=== PATIENT | female | born 1955 | race American Indian/Alaskan Native ===

== ENCOUNTER 2016-12-05 07:13 | Day surgery (SDC) | payer MEDICAID ==
[2016-12-05] MEDS: NACL 0.9% 1000 ML 1,000 ML IV SCH ×2 (08:02→08:09)
[2016-12-05] MEDS ORDERED: DIPRIVAN 10 MG/ML IV ONE ×2 (08:04→08:05)
[2016-12-05] MEDS ORDERED: XYLOCAINE MPF 2% ONE (08:10)
--- NOTE | 2016-12-05 08:22 | Anesthesia Consultation ---
Anesthesia Consult and Med Hx Date of service: 12/05/16 - Airway Anesthetic Teeth Evaluation: Poor ROM Head & Neck: Adequate Mental/Hyoid Distance: Adequate Mallampati Class: Class II Intubation Access Assessment: Probably Good - Pulmonary Exam CTA: Yes - Cardiac Exam Cardiac Exam: RRR - Pre-Operative Health Status ASA Pre-Surgery Classification: ASA3 Proposed Anesthetic Plan: MAC - Pulmonary Hx Smoking: Yes Hx Respiratory Symptoms: Yes (chronic bronchitis) Hx Pneumonia: Yes - Cardiovascular System Hx Hypertension: Yes - Gastrointestinal Hx Gastroesophageal Reflux Disease: Yes - Endocrine Hx Liver Disease: Yes (HEPATITIS C) Hx Non-Insulin Dependent Diabetes: Yes - Hematic Hx Anemia: Yes - Other Systems Hx Alcohol Use: Yes (quit 01/2014) Hx Substance Use: Yes (quit smoking marijuana and using cocaine 01/2014) Hx Obesity: Yes - Additional Comments Anesthesia Medical History Comments: delayed emergence
--- NOTE | 2016-12-05 08:23 | Anesthesia Day of Surgery ---
Anesthesia Day of Surgery - Day of Surgery Patient Examined: Yes Patient H&P Reviewed: Yes Patient is NPO: Yes
--- NOTE | 2016-12-05 08:50 | Short Stay Summary ---
Short Stay Documentation - Allergies and Medications Current Medications: Allergies morphine Allergy (Verified 12/04/16 14:59) Unknown Per patient "I was burning inside my arm." onion Allergy (Verified 12/04/16 14:59) Itching per patient she experiences generalized itching and redness Penicillins Allergy (Verified 12/03/16 15:35) Unknown PER PATIENT, "I CAN TAKE PCN BY MOUTH BUT NOT BY IV!" tramadol Allergy (Verified 12/04/16 14:59) Vomiting Home Medications Medication Instructions Recorded Confirmed Last Taken Type Bisoprolol Fumarate [Zebeta] 40 mg PO QDAY 12/03/16 12/05/16 12/03/16 History Naproxen Sodium [Aleve TAB] 220 mg PO Q8H PRN 12/03/16 12/05/16 12/03/16 History Pregabalin [Lyrica] 100 mg PO BID 12/03/16 12/05/16 12/03/16 History Ranitidine HCl [Zantac 150 MG TAB] 150 mg PO BID 12/03/16 12/05/16 12/03/16 History metFORMIN [Glucophage] 500 mg PO BID 12/03/16 12/05/16 12/03/16 History Active Medications Sodium Chloride (Nacl 0.9% 1000 Ml) 1,000 mls @ 50 mls/hr IV DIRECT TREVOR Last Admin: 12/05/16 08:09 Dose: 50 mls/hr - Brief post op/procedure progress note Date of procedure: 12/05/16 Pre-op diagnosis: 1. Colon cancer screening 2. LGI bleed 3. H/O Colon polyps Post-op diagnosis: same (1. Prominent IL valve 2. Internal hemorrhoids 3. Poor prep) Procedure: Colonoscopy with biopsy Anesthesia: MAC Findings: As above Surgeon: DOROTEO LOMELI Estimated blood loss: none Pathology: list (1. IL valve biopsy) Specimen disposition: to lab Condition: stable - Disposition Condition at discharge: Stable Disposition: DISCHARGED TO HOME OR SELFCARE Short Stay Discharge Plan Activity: no restrictions Weight Bearing Status: Full Weight Bearing Diet: regular, low salt, diabetic Follow up with: MARGARET DUBOIS MD [Primary Care Provider] - 7 Days
--- NOTE | 2016-12-05 09:00 | Post Anesthesia Evaluation ---
- Post Anesthesia Evaluation Patient Participated: Yes Airway Patent: Yes Stable Respiratory Function: Yes Nausea/Vomiting: No Temp > 96.8F: Yes Pain Manageable: Yes Adequeate Hydration: Yes Anesthesia Complications: No Block Receding Appropriately: Not Applicable Patient on Ventilator: No
[2016-12-05 09:37] VITALS: BP 157/100
== END 2016-12-05 07:14 | disposition home or self-care (01) ==
LOC: GIO 07:13
PROVIDERS: ATTEND Internal Medicine Gastroenterology
DX: K64.8 Other hemorrhoids (principal); M19.90 Unspecified osteoarthritis, unspecified site; B18.2 Chronic viral hepatitis C; I10 Essential (primary) hypertension; F10.21 Alcohol dependence, in remission; E11.9 Type 2 diabetes mellitus without complications; D64.9 Anemia, unspecified; K21.9 Gastro-esophageal reflux disease without esophagitis; E66.9 Obesity, unspecified; Z68.38 Body mass index [BMI] 38.0-38.9, adult; Z80.3 Family history of malignant neoplasm of breast; Z83.3 Family history of diabetes mellitus; Z98.51 Tubal ligation status; Z98.890 Other specified postprocedural states; Z87.891 Personal history of nicotine dependence; Z86.010 Personal history of colon polyps; Z87.01 Personal history of pneumonia (recurrent); Z79.899 Other long term (current) drug therapy; Z79.84 Long term (current) use of oral hypoglycemic drugs
CPT/HCPCS: 45380; 82962; 88305; J2704